=== PATIENT | female | born 1955 | race Caucasian/White ===

== ENCOUNTER 2016-07-23 05:41 | Day surgery (SDC) | payer BC ==
[2016-07-22 10:34] VITALS: BMI 36.8
[2016-07-23] MEDS ORDERED: MIDAZOLAM HCL 2 MG/2 ML SINGLE DOSE VIAL ONE (06:29)
[2016-07-23] MEDS ORDERED: ROPIVACAINE HCL 0.5% 30ML VIAL ONE (06:29)
[2016-07-23] MEDS ORDERED: DEXAMETHASONE SOD PHOSPHATE/PF 10 MG/ML SDV ONE (06:29)
[2016-07-23] MEDS ORDERED: PROPOFOL 20 ML ONE ×3 (07:07→08:57)
[2016-07-23] MEDS ORDERED: SUCCINYLCHOLINE CHLORIDE 200 MG/10 ML VIAL ONE (07:07)
[2016-07-23] MEDS ORDERED: BUPIVACAINE HCL/EPINEPHRINE/PF 30 ML VIAL IJ ONE (07:16)
[2016-07-23] MEDS ORDERED: EPINEPHrine 1:1,000 1 MG/1 ML - 30ML VIAL (INJECTION) ONE (07:17)
--- NOTE | 2016-07-23 07:28 | HP ---
History & Physical Update - History History: No Change - Physical Physical: No Change - Assessment Assessment: No Change - Plan Plan: No Change (complete H&P from medical doctor on 07/19)
[2016-07-23] MEDS ORDERED: ceFAZolin SODIUM 1 GM VIAL ONE (08:00)
[2016-07-23] MEDS ORDERED: KETOROLAC TROMETHAMINE 30 MG/1 ML VIAL ONE (08:04)
[2016-07-23] MEDS ORDERED: ONDANSETRON 4 MG/2 ML VIAL ONE (08:04)
[2016-07-23] MEDS ORDERED: DEXAMETHASONE SOD PHOSPHATE 4 MG/1 ML VIAL ONE (08:04)
[2016-07-23] MEDS ORDERED: BUPIVACAINE 0.25% /EPI 1:200,000 10 ML VIAL INF ONE (08:25)
[2016-07-23] MEDS ORDERED: oxyCODONE HCL 10 MG SUSTAINED ACTING TABLET PO ONE (09:33)
[2016-07-23] MEDS ORDERED: oxyCODONE HCL 5 MG TABLET PO PRN ×2 (09:33→10:15)
--- NOTE | 2016-07-23 09:36 | OP ---
Operative Note - Note: Operative Date: 07/23/16 Pre-Operative Diagnosis: Right shoulder glenoid fracture, labral tear, instability Operation: RSA, glenoid repair, labral repair Post-Operative Diagnosis: Same as Pre-op Surgeon: Michael Hirsch Anesthesia: Local Operative Report Dictated: Yes
--- NOTE | 2016-07-23 09:36 | DS ---
Physical Examination Vital Signs: Vital Signs Temperature 98.5 F 07/23/16 05:58 Pulse Rate 70 07/23/16 05:58 Respiratory Rate 18 07/23/16 05:58 Blood Pressure 140/78 07/23/16 05:58 O2 Sat by Pulse Oximetry (%) 97 07/23/16 05:58 Discharge Summary Reason For Visit: RIGHT GLENOID FRACTURE, ROTATOR CUFF TEAR, RT SHLD Condition: Good - Instructions Diet, Activity, Other Instructions: Post Operative Instructions: Shoulder Arthroscopy Dr Michael Hirsch 1. Pain following a Shoulder Arthroscopy is variable and can be significant. Some patients will have more pain than others. You have been provided with a prescription for medication that contains a narcotic. You are not allowed to drive while on this medication. You should NOT take Tylenol (Acetaminophen) when taking the pain medication ( it will result in an overdose). Feel free to take medications such as Ibuprofen or Naprosyn in addition to the pain medicine if you do not have any problems with the NSAID class of medications. 2. Apply ice to the shoulder for 15 minutes every hour. You may continue this for as many days as necessary. 3. You may find sleeping on an incline (reclining chair) to be more comfortable for the first few days. 4. You must remain in your sling at all times except when showering. The only exception to this is to allow you to stretch your elbow a few times a day to prevent your hand and forearm from swelling. 5. You are not to use your arm to reach for anything, lift anything or carry anything until instructed otherwise. 6. You may remove the bandages in 48 hours. You may shower at that point. 7. Place band-aids on the sutures after your shower.Do not put any creams or lotions on the incision until after the sutures are removed. 8. Please call the office to schedule a visit to have your sutures removed. 9. If for any reason you believe you may have an infection or are concerned, please feel free to call me. I can be reached through our office number 24 hours a day. 10. Please call our office with any questions; we will review the surgical findings during your post-operative visit. Disposition: HOME - Home Medications Comprehensive Discharge Medication List: Ambulatory Orders Citalopram Hydrobromide [Celexa -] 40 mg PO DAILY 07/22/16 Lisinopril [Prinivil] 20 mg PO DAILY 07/22/16
[2016-07-23] MEDS ORDERED: LACTATED RINGERS SOLUTION 1,000 ML IV SCH (10:15)
[2016-07-23] MEDS ORDERED: ACETAMINOPHEN 325 MG TABLET (FP) PO PRN (10:15)
[2016-07-23] MEDS ORDERED: ONDANSETRON 4 MG/2 ML VIAL IVPUSH PRN (10:15)
[2016-07-23] MEDS ORDERED: oxyCODONE HCL 10 MG SUSTAINED ACTING TABLET ONE (10:20)
[2016-07-23 11:38] VITALS: TEMP 98.6
[2016-07-23 11:42] VITALS: BP 135/67; PULSE 92
--- NOTE | 2016-07-26 11:54 | PATH ---
Surgical Pathology Report Patient Name: RONA MÉNDEZ [facility]. Rec. #: [id number] /Age/Gender: 1955 (Age: 61) / F Account: [id number] Location: [facility] AMBULATORY Taken: 07/23/2016 Received: 07/23/2016 Reported: 07/26/2016 Physicians: Michael Hirsch M.D. Specimen(s) Received RIGHT SHOULDER SHAVINGS Clinical History Right glenoid fracture, rotator cuff tear, right shoulder Final Diagnosis SOFT TISSUE, RIGHT SHOULDER, ARTHROSCOPIC SHAVINGS: SYNOVIUM WITH CHRONIC INFLAMMATION AND FRAGMENTS OF GRANULATION TISSUE WITH FIBRINOHEMORRHAGIC EXUDATE; FIBROCARTILAGE WITH MYXOHYALINE DEGENERATION. Electronically Signed Flavio Villela M.D. Gross Description Received in formalin labeled "right shoulder shavings" is a 2.5 x 2.0 x 0.2 cm aggregate of hinton soft tissue fragments. The formalin is filtered and the specimen is entirely submitted in one cassette. 07/23/201607/23/2016
--- NOTE | 2016-07-30 09:08 | SURG ---
Surgery Orthopaedic Technologist Note Orthopaedic Technologist: Meg Sosa PA-C Date of Service: 07/23/16 Diagnosis: Right shoulder glenoid fracture, labral tear, instability Procedure: RSA, glenoid repair, labral repair I was present for the entirety of the operative procedure. For further detail, please refer to operative report. Visit type - Case Type Case Type: Scheduled Admission - Emergency Emergency Visit: No - New patient This patient is new to me today: Yes Date on this admission: 07/30/16 - Critical Care Critical Care patient: No
== END 2016-07-23 11:10 | disposition home or self-care (01) ==
LOC: FASU 05:41
PROVIDERS: ATTEND Orthopaedic Surgery
PROC: 0RBJ4ZZ Excision of Right Shoulder Joint, Percutaneous Endoscopic Approach (ICD-10-PCS; 2016-07-23)
PROC: 0MM14ZZ Reattachment of Right Shoulder Bursa and Ligament, Percutaneous Endoscopic Approach (ICD-10-PCS; 2016-07-23)
PROC: 0RQJ4ZZ Repair Right Shoulder Joint, Percutaneous Endoscopic Approach (ICD-10-PCS; 2016-07-23)
PROC: 0LB14ZZ Excision of Right Shoulder Tendon, Percutaneous Endoscopic Approach (ICD-10-PCS; principal; 2016-07-23 08:12)
PROC: 0RQJ4ZZ Repair Right Shoulder Joint, Percutaneous Endoscopic Approach (ICD-10-PCS; 2016-07-23 08:12)
DX: S42.141A Displaced fracture of glenoid cavity of scapula, right shoulder, initial encounter for closed fracture (principal); S43.421A Sprain of right rotator cuff capsule, initial encounter; S43.431A Superior glenoid labrum lesion of right shoulder, initial encounter; S43.491A Other sprain of right shoulder joint, initial encounter; X58.XXXA Exposure to other specified factors, initial encounter; Y93.9 Activity, unspecified; Y92.9 Unspecified place or not applicable
CPT/HCPCS: 88304-TC